=== PATIENT | female | born 1935 | race Caucasian/White ===

== ENCOUNTER 2021-01-03 19:49 | Inpatient (IN) | payer OTHER ==
[2021-01-03 21:20] LABS: Absolute Lymphocytes (CBC) 2.1 K/uL (0.7-4.9); Basophils % 0.5 % (0-1.3); Hematocrit 36.1 % (36.0-45.0); Lymphocytes % 17.5 % (15.3-44.8); MPV 9.1 fL (7.6-11.3); RBC Red Blood Cell Count 3.85 M/uL (3.86-4.86)
--- NOTE | 2021-01-03 21:31 | RAD REPORT ---
EXAM DESCRIPTION: RAD - Chest Single View - 01/03/2021 8:56 pm CLINICAL HISTORY: CHEST PAIN COMPARISON: Single-view chest December 2014 TECHNIQUE: AP portable chest image was obtained 01/03/2021 8:56 pm . FINDINGS: No dense mass or consolidation. Left lung base is limited in assessment. Left hemidiaphrag m elevation is present. Diffusely prominent interstitial pattern noted increased over the prior study . This could be progressive fibrosis, interstitial edema, interstitial infiltrate or a combination. Heart and vasculature are normal. No measurable pleural effusion and no pneumothorax. No acute bony abnormality seen. No acute aortic findings suspected. IMPRESSION: Prominent interstitial pattern increased over remote study. Progressive fibrosis, edema, infiltrate or a combination can give this presentation.
[2021-01-03 21:44] LABS: ALT/SGPT 12 U/L (12-78); AST/SGOT 17 U/L (15-37); Albumin 2.7 g/dL (3.4-5.0); Alkaline Phosphatase 89 U/L (45-117); BUN Blood Urea Nitrogen 17 mg/dL (7-18); Bicarbonate 27 mmol/L (21-32); Bilirubin Direct 0.2 mg/dL (0-0.2); Bilirubin Total 0.8 mg/dL (0.2-1.0); Glucose Level 135 mg/dL (74-106); Magnesium 1.9 mg/dL (1.8-2.4); NT PRO-BNP 315 pg/mL (<450); Potassium 3.1 mmol/L (3.5-5.1); Protein, Total 7.9 g/dL (6.4-8.2); Sodium Level 139 mmol/L (136-145); Troponin (Emerg Dept Use Only) < 0.02 ng/mL (0.0-0.045)
[2021-01-03 22:11] LABS: Protime INR 1.21
[2021-01-03] MEDS ORDERED: CEFTRIAXONE 1000 MG/VIAL ONE (22:12)
[2021-01-03] MEDS ORDERED: NA CHLORIDE 0.9% 1,000 ML ONE (22:12)
[2021-01-03] MEDS ORDERED: NA CHLORIDE 0.9% 500 ML ONE (22:12)
--- NOTE | 2021-01-03 23:56 | EDPHYS ---
Physician Documentation [facility] Name: Cynthia Bridges Age: 85 yrs Sex: Female : 1935 Arrival Date: 01/03/2021 Time: 19:54 Bed 19 Private MD: ED Physician Misael Bell HPI: 01/03 23:39 This 85 yrs old Female presents to ER via Ambulatory with complaints of jose Chills. 23:39 WEAKNESS, FEELS WEAK. The patient presents with generalized weakness, lightheadedness. jose Onset: The symptoms/episode began/occurred 2 day(s) ago. Context: occurred at an unknown location. Modifying factors: The symptoms are alleviated by nothing, the symptoms are aggravated by nothing. Associated signs and symptoms: Pertinent positives: nausea. Severity of symptoms: At their worst the symptoms were mild in the emergency department the symptoms are unchanged. Patient's baseline: Neuro: alert and fully oriented, Motor: no deficits. Historical: - Allergies: 20:05 No Known Allergies; wg - PMHx: 20:05 Hyperlipidemia; Hypertension; TIA; wg - Immunization history:: Adult Immunizations up to date. - Social history:: Smoking status: Patient/guardian denies using tobacco, the patient reports quitting approximately 15 years ago. ROS: 23:48 Constitutional: Negative for fever, chills, and weight loss, Eyes: Negative for injury, jose pain, redness, and discharge, ENT: Negative for injury, pain, and discharge, Neck: Negative for injury, pain, and swelling, Cardiovascular: Negative for chest pain, palpitations, and edema, Respiratory: Negative for shortness of breath, cough, wheezing, and pleuritic chest pain, Abdomen/GI: Negative for abdominal pain, nausea, vomiting, diarrhea, and constipation, Back: Negative for injury and pain, : Negative for injury, bleeding, discharge, and swelling, MS/Extremity: Negative for injury and deformity, Skin: Negative for injury, rash, and discoloration, Psych: Negative for depression, anxiety, suicide ideation, homicidal ideation, and hallucinations, Allergy/Immunology: Negative for hives, rash, and allergies, Endocrine: Negative for neck swelling, polydipsia, polyuria, polyphagia, and marked weight changes, Hematologic/Lymphatic: Negative for swollen nodes, abnormal bleeding, and unusual bruising. 23:48 Neuro: Positive for weakness. Exam: 23:48 Constitutional: This is a well developed, well nourished patient who is awake, alert, jose and in no acute distress. Head/Face: Normocephalic, atraumatic. Eyes: Pupils equal round and reactive to light, extra-ocular motions intact. Lids and lashes normal. Conjunctiva and sclera are non-icteric and not injected. Cornea within normal limits. Periorbital areas with no swelling, redness, or edema. ENT: Nares patent. No nasal discharge, no septal abnormalities noted. Tympanic membranes are normal and external auditory canals are clear. Oropharynx with no redness, swelling, or masses, exudates, or evidence of obstruction, uvula midline. Mucous membranes moist. Neck: Trachea midline, no thyromegaly or masses palpated, and no cervical lymphadenopathy. Supple, full range of motion without nuchal rigidity, or vertebral point tenderness. No Meningismus. Chest/axilla: Normal chest wall appearance and motion. Nontender with no deformity. No lesions are appreciated. Cardiovascular: Regular rate and rhythm with a normal S1 and S2. No gallops, murmurs, or rubs. Normal PMI, no JVD. No pulse deficits. Respiratory: Lungs have equal breath sounds bilaterally, clear to auscultation and percussion. No rales, rhonchi or wheezes noted. No increased work of breathing, no retractions or nasal flaring. Abdomen/GI: Soft, non-tender, with normal bowel sounds. No distension or tympany. No guarding or rebound. No evidence of tenderness throughout. Back: No spinal tenderness. No costovertebral tenderness. Full range of motion. Female : Normal external genitalia. Skin: Warm, dry with normal turgor. Normal color with no rashes, no lesions, and no evidence of cellulitis. MS/ Extremity: Pulses equal, no cyanosis. Neurovascular intact. Full, normal range of motion. Psych: Awake, alert, with orientation to person, place and time. Behavior, mood, and affect are within normal limits. 23:48 Neuro: Orientation: is normal, appropriate for stated age, no acute changes, Mentation: is normal, appropriate for stated age, no acute changes, Memory: is normal, appropriate for stated age, no acute changes, Gait: not tested. Babinski testing is normal, seizure activity, is not displayed by the patient. 01/04 01:25 ECG was reviewed by the Attending Physician. jose Vital Signs: 01/03 20:01 BP 179 / 143; Pulse 98; Resp 18; Temp 97.6; Pulse Ox 98% on R/A; Weight 77.11 kg; wg Height 5 ft. 6 in. (167.64 cm); Pain 0/10; 22:10 BP 163 / 70; Pulse 76; Resp 17 S; Pulse Ox 100% on R/A; Pain 0/10; sj1 01/04 01:03 BP 119 / 67; Pulse 68; Resp 19 S; Pulse Ox 96% on R/A; Pain 0/10; sj1 01/03 20:01 Body Mass Index 27.44 (77.11 kg, 167.64 cm) wg MDM: 01/03 20:48 Patient medically screened. jose 23:52 Differential Diagnosis altered mental status, sepsis. Differential diagnosis: jose generalized weakness, GI bleed, hypovolemia, idiopathic dizziness. Data reviewed: vital signs, nurses notes, lab test result(s), EKG, radiologic studies, CT scan, plain films. Data interpreted: classroom monitor: rate is 76 beats/min, rhythm is regular, Pulse oximetry: is 100 %. Interpretation: normal. Test interpretation: by ED physician or midlevel provider: ECG, plain radiologic studies. Counseling: I had a detailed discussion with the patient and/or guardian regarding: the historical points, exam findings, and any diagnostic results supporting the discharge/admit diagnosis, lab results, radiology results, the need for further work-up and treatment in the hospital. 01/03 20:08 Order name: Basic Metabolic Panel; Complete Time: 23:34 wg 01/03 20:08 Order name: CBC with Diff; Complete Time: 23:34 wg 01/03 20:08 Order name: LFT's; Complete Time: 23:34 wg 01/03 20:08 Order name: Magnesium; Complete Time: 23:34 wg 01/03 20:08 Order name: NT PRO-BNP; Complete Time: 23:34 wg 01/03 20:08 Order name: PT-INR; Complete Time: 23:34 wg 01/03 20:08 Order name: Troponin (emerg Dept Use Only); Complete Time: 23:34 wg 01/03 20:50 Order name: Blood Culture Adult (2) [facility] 01/03 20:50 Order name: Lactate; Complete Time: 23:34 [facility] 01/03 20:50 Order name: Urine Culture [facility] 01/03 20:51 Order name: Flu; Complete Time: 23:34 [facility] 01/03 21:47 Order name: SARS-COV-2 RT PCR; Complete Time: 23:34 EDMS 01/04 00:02 Order name: Urine Dipstick-Ancillary; Complete Time: 00:05 EDMS 01/03 20:08 Order name: XRAY Chest (1 view); Complete Time: 23:34 wg 01/03 20:08 Order name: EKG; Complete Time: 20:08 01/03 20:08 Order name: Cardiac monitoring; Complete Time: 21:48 wg 01/03 20:08 Order name: EKG - Nurse/Tech; Complete Time: 21:48 wg 01/03 20:08 Order name: IV Saline Lock; Complete Time: 21:48 wg 01/03 20:08 Order name: Labs collected and sent; Complete Time: 21:48 wg 01/03 20:08 Order name: O2 Per Protocol; Complete Time: 21:48 wg 01/03 20:08 Order name: O2 Sat Monitoring; Complete Time: 21:48 wg 01/03 20:50 Order name: Urine Dipstick-Ancillary (obtain specimen); Complete Time: 01:16 [facility] 01/04 00:05 Order name: CT Stone Protocol [facility] EC/19 01:25 Rate is 83 beats/min. Rhythm is regular. QRS Superior is Normal. ME interval is normal. QRS jose interval is normal. QT interval is normal. No Q waves. T waves are Normal. No ST changes noted. Clinical impression: NSR w/ Non-specific ST/T Changes and No evidence of ischemia. Interpreted by me. Reviewed by me. Administered Medications: 01/03 21:47 Drug: Rocephin (cefTRIAXone) 1 grams Route: IV; Rate: per protocol; Site: left [facility] antecubital; 01/04 01:16 Follow up: Response: No adverse reaction; IV Status: Completed infusion [facility] 01/03 21:48 Drug: NS 0.9% 500 ml Route: IV; Rate: bolus; Site: left antecubital; [facility] 21:48 Drug: NS 0.9% 1000 ml Route: IV; Rate: 125 ml/hr; Site: left antecubital; sj1 01/04 00:05 Drug: Potassium Effervescent Tablet 50 mEq Route: PO; sj1 00:05 Follow up: Response: No adverse reaction sj1 01:26 Not Given (PT ADMITTED TO THE FLOORr): levofloxacin 500 mg 100 ml IVPB once over 60 minssj1 Disposition Summary: 01/03/21 23:55 Hospitalization Ordered Hospitalization Status: Inpatient Admission jose Provider: Leonid Roque cha Location: Telemetry/MedSurg (observation) jose Condition: Fair jose Problem: new jose Symptoms: have improved jose Bed/Room Type: Standard [facility] Room Assignment: 424(01/04/21 00:37) cg Diagnosis - Weakness jose - Other malaise and fatigue jose - Hypokalemia jose - Syncope Near jose - Dysuria jose - Essential (primary) hypertension jose - UTI/ Urinary tract infection, site not specified jose - Elevated white blood cell count jose - Pyelonephritis acute jose - Other hydronephrosis jose - Hydroureter jose - Pneumonia, unspecified organism - bibasilar jose Forms: - Medication Reconciliation Form jose - SBAR form jose Signatures: Dispatcher [employer] EDMS Misael Bell MD MD cha Garcia, Cindy, RN RN Fredo Hackett, DIONNA Alondra Nicole RN RN sj1 Corrections: (The following items were deleted from the chart) 01/03 21:47 20:50 CORONAVIRUS+BRZ ordered. EDPA EDPA 01/04 00:37 01/03 23:55 jose cg
--- NOTE | 2021-01-03 23:56 | ER ---
Nurse's Notes [facility] Name: Cynthia Bridges Age: 85 yrs Sex: Female : 1935 Arrival Date: 01/03/2021 Time: 19:54 Bed 19 Private MD: Diagnosis: Weakness;Other malaise and fatigue;Hypokalemia;Syncope Near;Dysuria;Essential (primary) hypertension;UTI/ Urinary tract infection, site not specified;Elevated white blood cell count;Pyelonephritis acute;Other hydronephrosis;Hydroureter;Pneumonia, unspecified organism-bibasilar Presentation: 01/03 20:01 Chief complaint: Patient states: Pt states she has had chills and not felt well since wg the [place]. Pt states she has periods of SOB but no fever, cough, n/v/d, Abd pain, or chest pain. Pt's main complaint is of not feeling well and chills. Coronavirus screen: Vaccine status: Patient reports receiving the 2nd dose of the covid vaccine. Date May 2020. Ebola Screen: Patient negative for fever greater than or equal to 101.5 degrees Fahrenheit, and additional compatible Ebola Virus Disease symptoms Patient denies exposure to infectious person. Patient denies travel to an Ebola-affected area in the 21 days before illness onset. No symptoms or risks identified at this time. Initial Sepsis Screen: Does the patient meet any 2 criteria? No. Patient's initial sepsis screen is negative. Does the patient have a suspected source of infection? No. Patient's initial sepsis screen is negative. Risk Assessment: Do you want to hurt yourself or someone else? Patient reports no desire to harm self or others. Onset of symptoms. 20:01 Method Of Arrival: Ambulatory 20:01 Acuity: MITALI 3 wg Triage Assessment: 20:05 General: Appears uncomfortable, slender, well groomed, well developed, Behavior is wg calm, cooperative, appropriate for age. Pain: Denies pain. Respiratory: No deficits noted. Historical: - Allergies: 20:05 No Known Allergies; wg - PMHx: 20:05 Hyperlipidemia; Hypertension; TIA; wg - Immunization history:: Adult Immunizations up to date. - Social history:: Smoking status: Patient/guardian denies using tobacco, the patient reports quitting approximately 15 years ago. Screenin:10 Abuse screen: Denies threats or abuse. Denies injuries from another. Nutritional sj1 screening: No deficits noted. Tuberculosis screening: No symptoms or risk factors identified. Fall Risk None identified. Assessment: 22:09 General: Appears in no apparent distress. Behavior is calm, cooperative, appropriate sj1 for age. Pain: Denies pain. Neuro: No deficits noted. Cardiovascular: No deficits noted. Respiratory: No deficits noted. GI: No deficits noted. : No deficits noted. EENT: No deficits noted. Derm: No deficits noted. Musculoskeletal: No deficits noted. 01/04 00:57 Reassessment: Patient appears in no apparent distress at this time. No changes from sj1 previously documented assessment. Reassessment: REPORT GIVEN TO LUZ VILLAREAL. Vital Signs: 01/03 20:01 BP 179 / 143; Pulse 98; Resp 18; Temp 97.6; Pulse Ox 98% on R/A; Weight 77.11 kg; wg Height 5 ft. 6 in. (167.64 cm); Pain 0/10; 22:10 BP 163 / 70; Pulse 76; Resp 17 S; Pulse Ox 100% on R/A; Pain 0/10; sj1 01/04 01:03 BP 119 / 67; Pulse 68; Resp 19 S; Pulse Ox 96% on R/A; Pain 0/10; sj1 01/03 20:01 Body Mass Index 27.44 (77.11 kg, 167.64 cm) Vitals: 01/03 22:10 Cardiac Rhythm Assessment Regular Sinus rhythm. 1 ED Course: 19:54 Patient arrived in ED. 20:01 Fredo Graves, DIONNA is Primary Nurse. wg 20:05 Triage completed. wg 20:07 Arm band placed on right wrist. wg 20:47 Misael Bell MD is Attending Physician. [facility] 20:56 XRAY Chest (1 view) In Process Unspecified. EDMS 21:47 Flu Sent. sj1 21:56 SARS-COV-2 RT PCR Sent. sj1 22:10 Patient has correct armband on for positive identification. Bed in low position. Call sj1 light in reach. Side rails up X 1. 22:10 No provider procedures requiring assistance completed. Inserted saline lock: 20 gauge sj1 in left antecubital area, using aseptic technique. Blood collected. 23:53 Leonid Roque MD is Hospitalizing Provider. [facility] 01/04 00:51 CT Stone Protocol Sent. sj1 01:04 Patient admitted, IV remains in place. sj1 01:16 Urine Culture Sent. sj1 01:16 Blood Culture Adult (2) Sent. sj1 Administered Medications: 01/03 21:47 Drug: Rocephin (cefTRIAXone) 1 grams Route: IV; Rate: per protocol; Site: left sj antecubital; 01/04 01:16 Follow up: Response: No adverse reaction; IV Status: Completed infusion [facility] 01/03 21:48 Drug: NS 0.9% 500 ml Route: IV; Rate: bolus; Site: left antecubital; [facility] 21:48 Drug: NS 0.9% 1000 ml Route: IV; Rate: 125 ml/hr; Site: left antecubital; [facility] 01/04 00:05 Drug: Potassium Effervescent Tablet 50 mEq Route: PO; sj1 00:05 Follow up: Response: No adverse reaction 1 01:26 Not Given (PT ADMITTED TO THE FLOORr): levofloxacin 500 mg 100 ml IVPB once over 60 minssj1 Outcome: 01/03 23:55 Decision to Hospitalize by Provider. [facility] 01/04 01:03 Admitted to Med/surg via stretcher, with chart, Report called to LUZ kapoor Condition: stable 01:27 Patient left the ED. 1 Signatures: Dispatcher [employer] EDMS Misael Bell MD MD cha Marsh, Wendy wm Gamba, Liam, RN wg Johnson, Sade, RN RN sj1
[2021-01-04 00:02] LABS: Urine Blood 3+ (Negative); Urine Glucose Negative (Negative); Urine Protein 2+ (Negative); Urine pH 5.5 (5.0-7.0)
[2021-01-04] MEDS ORDERED: POTASSIUM CL SA 10 MEQ TAB PO ONE ×3 (00:12→17:00)
[2021-01-04 01:43] VITALS: BMI 27.5
[2021-01-04] MEDS ORDERED: ONDANSETRON 4 MG/2 ML VIAL IV PRN (02:04)
[2021-01-04] MEDS: NA CHLORIDE 0.9% 1,000 ML IV SCH ×2 (02:04→12:47)
[2021-01-04] MEDS ORDERED: ACETAMINOPHEN 500 MG TAB PO PRN (02:04)
[2021-01-04] MEDS ORDERED: HYDRALAZINE HCL 20 MG/ML VIAL IV PRN (02:04)
--- NOTE | 2021-01-04 03:06 | P.HP ---
Certification for Inpatient Patient admitted to: Inpatient With expected LOS: <2 Midnights Patient will require the following post-hospital care: None Practitioner: I am a practitioner with admitting privileges, knowledge of patient current condition, hospital course, and medical plan of care. Services: Services provided to patient in accordance with Admission requirements found in Title 42 Section 412.3 of the Code of Federal Regulations Patient History Date of Service: 01/04/21 Reason for admission: UTI History of Present Illness: Ms. Bridges is an 85 yo F with HTN and HLD who presents with 3 days of lightheadedness and weakness. She denies falls and syncopal episodes. She denies fever, N/V, and urinary symptoms. WBC 12, K 3.1. Urine dipstick consistent with UTI. CXR IMPRESSION: Prominent interstitial pattern increased over remote study. Progressive fibrosis, edema, infiltrate or a combination can give this presentation. CT ABDOMEN pending Allergies No Known Allergies Allergy (Verified 01/14/15 22:32) Home Medications: Amlodipine [Norvasc] 2.5 mg PO DAILY 01/04/21 Olmesartan/Hydrochlorothiazide [Olmesartan-Hctz 40-12.5 mg Tab] 1 tab PO DAILY 01/04/21 - Past Medical/Surgical History Has patient received pneumonia vaccine in the past: No Diabetic: No -: HTN -: Right Rotator Cuff Tear -: HLD -: TIA -: Left Rotator Cuff Repair -: Bilateral Cataract Surgery -: Tubal ligation -: Append -: Tonsillectomy - Family History Family History: Reviewed- Non-Contributory - Social History Smoking Status: Former smoker Alcohol use: Yes CD- Drugs: No Caffeine use: Yes Place of Residence: Home Review of Systems 10-point ROS is otherwise unremarkable General: Weakness, As per HPI Eyes: Unremarkable ENT: Unremarkable Respiratory: Unremarkable Cardiovascular: Light Headedness Gastrointestinal: Unremarkable Genitourinary: Unremarkable Musculoskeletal: Unremarkable Integumentary: Unremarkable Neurological: Unremarkable Lymphatics: Unremarkable Physical Examination - Vital Signs Temperature: 97.1 F Blood Pressure: 110/61 Pulse: 74 Respirations: 19 Pulse Ox (%): 95 - Physical Exam General: Alert, In no apparent distress HEENT: Atraumatic, PERRLA, Mucous membr. moist/pink, EOMI, Sclerae nonicteric Neck: Supple, 2+ carotid pulse no bruit, No LAD, Without JVD or thyroid abnormality Respiratory: Clear to auscultation bilaterally, Normal air movement Cardiovascular: Regular rate/rhythm, Normal S1 S2 Gastrointestinal: Normal bowel sounds, No tenderness Musculoskeletal: No tenderness Integumentary: No rashes Neurological: Normal speech, Normal strength at 5/5 x4 extr, Normal tone, Normal affect Lymphatics: No axilla or inguinal lymphadenopathy - Studies Laboratory Data (last 24 hrs) 01/03/21 20:53: PT 13.9 H, INR 1.21 01/03/21 20:53: WBC 12.00 H, Hgb 12.1, Hct 36.1, Plt Count 226 01/03/21 20:53: Sodium 139, Potassium 3.1 L, BUN 17, Creatinine 1.05, Glucose 135 H, Magnesium 1.9, Total Bilirubin 0.8, AST 17, ALT 12, Alkaline Phosphatase 89 Microbiology Data (last 24 hrs): 01/03/21 21:29 Nasopharnyx Influenza Type A Antigen Screen - Final 01/03/21 21:29 Nasopharnyx Influenza Type B Antigen Screen - Final Assessment and Plan - Problems (Diagnosis) (1) HLD (hyperlipidemia) Current Visit: Yes Status: Chronic Qualifiers: Hyperlipidemia type: unspecified Qualified Code(s): E78.5 - Hyperlipidemia, unspecified (2) HTN (hypertension) Current Visit: Yes Status: Chronic Qualifiers: Hypertension type: unspecified Qualified Code(s): I10 - Essential (primary) hypertension (3) UTI (urinary tract infection) Current Visit: Yes Status: Acute Qualifiers: Urinary tract infection type: site unspecified Hematuria presence: with hematuria Qualified Code(s): N39.0 - Urinary tract infection, site not specified; R31.9 - Hematuria, unspecified - Plan continue IVF hydration and IV antibiotics potassium replacement hydralazine IV prn for BP spikes reconcile and continue home medications DVT ppx Discharge Plan: Home Plan to discharge in: 48 Hours - Advance Directives Does patient have a Living Will: No Does patient have a Durable POA for Healthcare: No - Code Status/Comfort Care Code Status Assessed: Yes (full code ) Critical Care: No Time Spent Managing Pts Care (In Minutes): 70
[2021-01-04 06:49] LABS: Absolute Lymphocytes (CBC) 3.1 K/uL (0.7-4.9); Basophils % 0.9 % (0-1.3); Hematocrit 33.7 % (36.0-45.0); Lymphocytes % 31.6 % (15.3-44.8); MPV 8.9 fL (7.6-11.3); RBC Red Blood Cell Count 3.62 M/uL (3.86-4.86)
[2021-01-04 06:55] LABS: Albumin 2.4 g/dL (3.4-5.0); Bilirubin Total 0.7 mg/dL (0.2-1.0); Magnesium 2.1 mg/dL (1.8-2.4); Potassium 3.3 mmol/L (3.5-5.1)
[2021-01-04] MEDS ORDERED: CEFTRIAXONE 1 GM/NS 50 ML 1 GM/50 ML BAG IV SCH (09:00)
[2021-01-04] MEDS ORDERED: INFLUENZA VACCINE (for 6+ mo) 0.5 ML DOSE IMVAC ONE (10:00)
--- NOTE | 2021-01-04 12:40 | P.PN ---
Subjective Date of Service: 01/04/21 Patient lives at home by herself. Patient's chart is been reviewed and patient is been feeling weak for the last 48 hr. She normally does most of her own activities of daily living as she lives at home alone. However, over the last couple of days she has been having weakness and her mentation has been altered. She is not able to think properly and she would just does not have a strain to get out of bed. Whenever she does walk she feels like she is going to fall and she has to hold onto things. This is need for her and she has never had go through a lot of this. Her chest x-ray indicated that she had some kind of interstitial lung disease with consolidation indicating a pneumonic process. Were going to get a dedicated CT of the chest to further evaluate this. Pneumonia can't be causing her symptoms as well as the confusion that she is feeling. She also has a urinary tract infection but of microscopy was not performed. Will also get a UA a with micro and a CT of the brain to make sure she has not had a acute stroke. Patient will need more than 24 hr of hospitalization to further work her up. She does need some physical therapy as she lives alone and she and normally does her own ADLs so she will need physical therapy to get her back to her normal level of functioning. Review of Systems 10-point ROS is otherwise unremarkable Physical Examination - Vital Signs Temperature: 98.3 F Blood Pressure: 106/46 Pulse: 70 Respirations: 18 Pulse Ox (%): 93 - Physical Exam General: Alert, In no apparent distress, Confused Neck: Supple, JVD not distended Respiratory: Diminished, Crackles/rales, Rhonchi/gurgles Cardiovascular: Regular rate/rhythm, Normal S1 S2 Gastrointestinal: Normal bowel sounds, Soft and benign, Non-distended, Tenderness (Patient was some flank tenderness) Musculoskeletal: No clubbing, No swelling, No tenderness Neurological: Normal speech, Normal tone, Sensation intact, Cranial nerves 3-12 intact, Normal affect, Abnormal gait, Abnormal strength Lymphatics: No axilla or inguinal lymphadenopathy - Studies Laboratory Data (last 24 hrs) 01/03/21 20:53: PT 13.9 H, INR 1.21 01/03/21 20:53: WBC 12.00 H, Hgb 12.1, Hct 36.1, Plt Count 226 01/03/21 20:53: Sodium 139, Potassium 3.1 L, BUN 17, Creatinine 1.05, Glucose 135 H, Magnesium 1.9, Total Bilirubin 0.8, AST 17, ALT 12, Alkaline Phosphatase 89 Microbiology Data (last 24 hrs): 01/03/21 21:29 Nasopharnyx Influenza Type A Antigen Screen - Final 01/03/21 21:29 Nasopharnyx Influenza Type B Antigen Screen - Final Medications List Reviewed: Yes Assessment & Plan - Problems (Diagnosis) (1) Generalized weakness Current Visit: Yes Status: Acute (2) Toxic encephalopathy Current Visit: Yes Status: Acute (3) Interstitial lung disease Current Visit: Yes Status: Acute (4) Hydronephrosis Current Visit: Yes Status: Acute (5) Ureteritis Current Visit: Yes Status: Acute (6) Consolidation lung Current Visit: Yes Status: Acute (7) UTI (urinary tract infection) Current Visit: Yes Status: Acute Qualifiers: Urinary tract infection type: site unspecified Hematuria presence: with hematuria Qualified Code(s): N39.0 - Urinary tract infection, site not sp ecified; R31.9 - Hematuria, unspecified - Plan Plan: 1. CT of the chest and CT of the brain 2. Dedicated UA with microscopy 3. Procalcitonin 4. Blood cultures 5. Physical therapy evaluation 6. Broad-spectrum antibiotic coverage 7. GI and DVT prophylaxis - Advance Directives Does patient have a Living Will: No Does patient have a Durable POA for Healthcare: No
--- NOTE | 2021-01-04 15:30 | RAD REPORT ---
EXAM DESCRIPTION: CT - Head Brain Wo Cont - 01/04/2021 3:19 pm CLINICAL HISTORY: Generalized weakness COMPARISON: 2014 TECHNIQUE: Computed axial tomography of the head was obtained. IV contrast was not requested. All CT scans are performed using dose optimization technique as appropriate and may include automated exposure control or mA/KV adjustment according to patient size. FINDINGS: An intracranial bleed is not seen . The ventricles are normal in caliber. No extra-axial fluid collection is noted. Mild cerebral atrophy Fluid within the sinuses/ mastoids is not seen. IMPRESSION: No acute intracranial abnormality is seen. If patient's symptoms persist MRI of the bra in would be recommended.
--- NOTE | 2021-01-04 15:55 | RAD REPORT ---
EXAM DESCRIPTION: CT - Thorax W/ Con - 01/04/2021 3:19 pm CLINICAL HISTORY: Chest pain COMPARISON: January 03, 2021 chest x-ray TECHNIQUE: Computed axial tomography of the chest was obtained. 100 cc Isovue 300 was administered i ntravenously. All CT scans are performed using dose optimization technique as appropriate and may include automated exposure control or mA/KV adjustment according to patient size. FINDINGS: [id number] patchy left lower lobe opacities. Mild right lower lobe opacity. The upper lobes are essentially clear. No mediastinal or hilar lymphadenopathy is seen. A pleural effusion is not present. A pericardial effusion is not seen. A 2.5 centimeter left thyroid nodule. Smaller nodule right lobe of the thyroid. Cholelithiasis. 15 millimeter nonspecific nodule left adrenal gland IMPRESSION: Mild to moderate opacities within left lower lobe probably pneumonia Mild right lower lobe opacity may represent additional pneumonia. 2.5 centimeter left thyroid nodule. Smaller nodule right lobe of the thyroid gland. Nonemergent thyro id ultrasound recommended
--- NOTE | 2021-01-04 16:44 | EKG ---
Test Date: 2021-01-03 Test Time: 20:48:16 Infrastructure Developer: MEASUREMENT RESULTS: Intervals: Rate: 92 [place]: 186 QRSD: 66 QT: 366 QTc: 452 [place]: P: -18 [place]: 186 QRS: -19 T: 43 INTERPRETIVE STATEMENTS: Sinus rhythm with premature supraventricular complexes Otherwise normal ECG Compared to ECG 11/23/2015 12:53:18 No significant changes Electronically Signed On 01-04-21 16:41:09 CDT by Payam Garcia
--- NOTE | 2021-01-04 16:44 | EKG ---
Test Date: 2021-01-03 Test Time: 20:49:15 Java Solutions Architect: MEASUREMENT RESULTS: Intervals: Rate: 83 [place]: 190 QRSD: 70 QT: 354 QTc: 415 [place]: P: [place]: 190 QRS: -11 T: 51 INTERPRETIVE STATEMENTS: Sinus rhythm with marked sinus arrhythmia Otherwise normal ECG Compared to ECG 01/03/2021 20:48:16 Atrial premature complex(es) no longer present Electronically Signed On 01-04-21 16:41:08 CDT by Payam Garcia
--- NOTE | 2021-01-04 16:59 | RAD REPORT ---
EXAM DESCRIPTION: CT - Stone Protocol - 01/04/2021 7:16 am CLINICAL HISTORY: The patient is 85 years old and is Female; FLANK PAIN TECHNIQUE: Axial computed tomography images of the abdomen and pelvis without intravenous contrast. Sagittal and coronal reformatted images were created and reviewed. This CT exam was performed usi ng one or more of the following dose reduction techniques: automated exposure control, adjustment o f the mA and/or kV according to patient size, and/or use of iterative reconstruction technique. COMPARISON: No relevant prior studies available. FINDINGS: Lung bases: Small focal areas of consolidation or atelectasis/scarring in the lung bases bilaterally measuring up to 2.4 cm. Calcified granuloma in the right lung base. ABDOMEN: Liver: Unremarkable. Gallbladder and bile ducts: Multiple large gallstones measuring up to 1.9 cm in the gallbladder. Pancreas: Unremarkable. No ductal dilation. Spleen: Unremarkable. No splenomegaly. Adrenals: Indeterminate 1.7 cm left adrenal nodule. Kidneys and ureters: Mild left hydroureteronephrosis and periureteral stranding. No stone identi fied. Mild to moderate bilateral perinephric stranding which may be chronic. Stomach and bowel: Sigmoid diverticulosis. Scattered colonic diverticula. No obstruction. No mucosal thickening. PELVIS: Appendix: No findings to suggest acute appendicitis. Bladder: Unremarkable. No stones. Reproductive: Unremarkable as visualized. ABDOMEN and PELVIS: Intraperitoneal space: Unremarkable. No free air. No significant fluid collection. Bones/joints: Schmorl's node at T12. Mild anterolisthesis of L4 on L5. No acute fracture. No dislocation. Soft tissues: Unremarkable. Vasculature: Scattered atherosclerotic vascular calcifications. No abdominal aortic aneurysm. Lymph nodes: Unremarkable. No enlarged lymph nodes. IMPRESSION: 1. Mild left hydroureteronephrosis and periureteral stranding. No stone identified. Findings can be seen with recent stone passage and UTI. 2. Sigmoid diverticulosis. 3. Multiple large gallstones measuring up to 1.9 cm in the gallbladder. 4. Indeterminate 1.7 cm left adrenal nodule. 5. Small focal areas of consolidation or atelectasis/scarring in the lung bases bilaterally measuri ng up to 2.4 cm. Underlying pulmonary nodules are not excluded. Electronically signed by: Adithya Flores MD 01/04/2021 1:01 AM CDT Due to temporary technical issues with the PACS/Fluency reporting system, reports are being signed by the in house radiologist without review as a courtesy to ensure prompt reporting. The interpreting r adiologist is fully responsible for the content of the report.
[2021-01-04] MEDS: CEFTRIAXONE 1 GM/NS 50 ML 1 GM/50 ML BAG IV SCH (20:04)
[2021-01-04 21:57] LABS: Urine Appearance CLEAR (Clear); Urine Bilirubin NEGATIVE (Negative); Urine Blood NEGATIVE (Negative); Urine Color YELLOW (Yellow); Urine Glucose NEGATIVE (Negative); Urine Protein NEGATIVE (Negative); Urine Specific Gravity >=1.030 (1.005-1.030)
[2021-01-04 22:06] LABS: Urine Bacteria <20 /HPF (<20); Urine Mucus 1+ /HPF (NONE SEEN); Urine RBC <5 /HPF (NONE SEEN)
[2021-01-05 04:23] LABS: Basophils % 2.7 % (0-1.3); Hematocrit 33.9 % (36.0-45.0); Lymphocytes % 38.1 % (15.3-44.8); MPV 9.4 fL (7.6-11.3); RBC Red Blood Cell Count 3.58 M/uL (3.86-4.86)
[2021-01-05 04:46] LABS: Albumin 2.6 g/dL (3.4-5.0); Bilirubin Total 0.3 mg/dL (0.2-1.0); Magnesium 1.9 mg/dL (1.8-2.4); Phosphorus 2.8 mg/dL (2.5-4.9); Potassium 3.6 mmol/L (3.5-5.1); Protein, Total 7.4 g/dL (6.4-8.2); Thyroid Stimulating Hormone 3.44 uIU/mL (0.360-3.740)
[2021-01-05] MEDS: NA CHLORIDE 0.9% 1,000 ML IV SCH ×2 (05:00→16:22)
[2021-01-05] MEDS ORDERED: PNEUMOCOCCAL VACCINE 0.5 ML IMVAC ONE (08:00)
[2021-01-05] MEDS: CEFTRIAXONE 1 GM/NS 50 ML 1 GM/50 ML BAG IV SCH ×2 (08:18→20:03)
[2021-01-05] MEDS ORDERED: POTASSIUM CL SA 10 MEQ TAB PO ONE (09:00)
[2021-01-05] MEDS ORDERED: ALBUTEROL INHALER 60 PUFF/8 GM IH PRN (15:08)
[2021-01-05] MEDS ORDERED: METHYLPREDNISOLONE 125 MG INJ IV ONE (15:22)
[2021-01-05] MEDS ORDERED: AZITHROMYCIN IV 250 MG in NA CHLORIDE 0.9% 250 ML IVPB ONE (15:24)
[2021-01-05] MEDS: DULERA 100/5 (MOMETASONE/FORMOTEROL) INHALER IH SCH (20:02)
[2021-01-06 06:58] LABS: Absolute Lymphocytes (CBC) 1.6 K/uL (0.7-4.9); Basophils % 0.5 % (0-1.3); Hematocrit 30.6 % (36.0-45.0); Lymphocytes % 28.1 % (15.3-44.8); RBC Red Blood Cell Count 3.28 M/uL (3.86-4.86)
[2021-01-06 07:05] LABS: BUN Blood Urea Nitrogen 12 mg/dL (7-18); Bicarbonate 25 mmol/L (21-32); Glucose Level 128 mg/dL (74-106); Potassium 3.8 mmol/L (3.5-5.1); Sodium Level 144 mmol/L (136-145)
--- NOTE | 2021-01-06 07:25 | RAD REPORT ---
EXAM DESCRIPTION: [place] Single View01/06/2021 6:56 am CLINICAL HISTORY: Chest pain COMPARISON: December FINDINGS: No significant change in the bilateral pulmonary opacities left greater than right. Heart is borderline enlarged IMPRESSION: No significant change the bilateral pulmonary opacities left greater than right probabl y pneumonia
[2021-01-06] MEDS ORDERED: MAGNESIUM SULFATE 1 gm IVPB 1 GM/100 ML BAG IV ONE (07:46)
[2021-01-06] MEDS ORDERED: POTASSIUM CL SA 10 MEQ TAB PO ONE (07:51)
[2021-01-06 08:49] VITALS: BP 140/58; TEMP 97
[2021-01-06] MEDS: CEFTRIAXONE 1 GM/NS 50 ML 1 GM/50 ML BAG IV SCH (08:51)
[2021-01-06] MEDS: NA CHLORIDE 0.9% 1,000 ML IV SCH (08:52)
[2021-01-06] MEDS: DULERA 100/5 (MOMETASONE/FORMOTEROL) INHALER IH SCH (08:53)
[2021-01-06] MEDS ORDERED: AZITHROMYCIN IV 250 MG in NA CHLORIDE 0.9% 250 ML IVPB SCH (09:00)
[2021-01-06 09:49] VITALS: O2SAT 95
--- NOTE | 2021-01-06 11:22 | P.DS ---
Discharge Date: 01/06/21 Disposition: DC HOME/HOME HEALTH CARE Discharge Condition: GOOD Reason for Admission: UTI - Problems (1) Generalized weakness Current Visit: Yes Status: Acute (2) Toxic encephalopathy Current Visit: Yes Status: Acute (3) Interstitial lung disease Current Visit: Yes Status: Acute (4) Hydronephrosis Current Visit: Yes Status: Acute (5) Ureteritis Current Visit: Yes Status: Acute (6) Consolidation lung Current Visit: Yes Status: Acute (7) UTI (urinary tract infection) Current Visit: Yes Status: Acute Qualifiers: Urinary tract infection type: site unspecified Hematuria presence: with hematuria Qualified Code(s): N39.0 - Urinary tract infection, site not specified; R31.9 - Hematuria, unspecified Brief History of Present Illness: Patient is an 85-year-old female came to the hospital with generalized weakness and she was not feeling like herself. She just does not have the energy. She normally lives alone and is able to do most of her own activities of daily living. She came to the emergency room to be evaluated and she was found have a urinary tract infection as well as a pneumonic process. She was treated with IV antibiotic therapy and she was also treated for early COPD. She has a history of tobacco abuse. She quit about 15 years ago when she was 70 years old. She does have some chronic lung changes on her CT scan, and this can be evaluated as an outpatient with Pulmonary. Can follow with her primary care provider in 1 week can get a repeat chest x-ray in 1-2 weeks to make sure the pneumonic process has resolved. At this time, patient is stable for discharge home. Vital Signs/Physical Exam: Temp Pulse Resp BP Pulse Ox 97.0 F 69 18 140/58 L 96 01/06/21 08:00 01/06/21 08:00 01/06/21 08:00 01/06/21 08:00 01/06/21 08:00 Laboratory Data at Discharge: WBC 5.60 K/uL (4.3-10.9) D 01/06/21 06:32 Hgb 10.4 g/dL (12.0-15.0) L 01/06/21 06:32 Hct 30.6 % (36.0-45.0) L 01/06/21 06:32 Plt Count 191 K/uL (152-406) 01/06/21 06:32 PT 13.9 SECONDS (9.5-12.5) H 01/03/21 20:53 INR 1.21 01/03/21 20:53 Sodium 144 mmol/L (136-145) 01/06/21 06:32 Potassium 3.8 mmol/L (3.5-5.1) 01/06/21 06:32 BUN 12 mg/dL (7-18) 01/06/21 06:32 Creatinine 0.59 mg/dL (0.55-1.3) 01/06/21 06:32 Glucose 128 mg/dL (74-106) H 01/06/21 06:32 Phosphorus 2.8 mg/dL (2.5-4.9) 01/05/21 03:34 Magnesium 1.8 mg/dL (1.8-2.4) 01/06/21 06:32 Total Bilirubin 0.3 mg/dL (0.2-1.0) 01/05/21 03:34 AST 13 U/L (15-37) L 01/05/21 03:34 ALT 10 U/L (12-78) L 01/05/21 03:34 Alkaline Phosphatase 78 U/L (45-117) 01/05/21 03:34 Triglycerides 108 mg/dL (<150) 01/05/21 03:34 Cholesterol 166 mg/dL (<200) 01/05/21 03:34 HDL Cholesterol 57 mg/dL (40-60) 01/05/21 03:34 Cholesterol/HDL Ratio 2.91 01/05/21 03:34 Home Medications: Amlodipine [Norvasc*] 2.5 mg PO DAILY 01/04/21 Olmesartan/Hydrochlorothiazide [Olmesartan-Hctz 40-12.5 mg Tab] 1 tab PO DAILY 01/04/21 Albuterol Inhaler [Ventolin Inhaler*] 2 puff IH Q6H PRN #1 hfa.aer.ad 01/06/21 Azithromycin Tab [Zithromax*] 250 mg PO DAILY #5 tab 01/06/21 Cefdinir [Omnicef] 300 mg PO BID #10 capsule 01/06/21 Mometasone/Formoterol [Dulera 100 Mcg/5 Mcg Inhaler] 2 puff IH BID #1 inhaler 01/06/21 predniSONE [Deltasone] 20 mg PO DAILY #5 tab 01/06/21 New Medications: Mometasone/Formoterol [Dulera 100 Mcg/5 Mcg Inhaler] 2 puff IH BID #1 inhaler Cefdinir [Omnicef] 300 mg PO BID #10 capsule predniSONE [Deltasone] 20 mg PO DAILY #5 tab Albuterol Inhaler [Ventolin Inhaler*] 2 puff IH Q6H PRN #1 hfa.aer.ad PRN Reason: Shortness Of Breath Azithromycin Tab [Zithromax*] 250 mg PO DAILY #5 tab Physician Discharge Instructions: OK TO DC IV AND DC HOME with home health FOLLOW-UP WITH PRIMARY CARE PROVIDER IN 1-2 WEEKS FOLLOW-UP WITH Pulmonary IN 1-2 WEEKS RETURN TO THE ER IF symptoms worsen CALL or TEXT DR. ARANGO AT [phone] IF ANY QUESTIONS REGARDING HOSPITAL STAY. PLEASE CALL THE FLOOR AT [phone] IF ANY MEDICATION OR NURSING QUESTIONS. Diet: AHA Activity: Fall precautions Followup: Eb Reynolds MD [Primary Care Provider] -
== END 2021-01-06 12:30 | disposition home health service (06) | DRG 689 ==
LOC: ER 19:49 → ERHOLD 01-04 00:26 → 4TH 01-04 00:51 → OBSVTOIN 01-04 12:40
PROVIDERS: ADMIT Hospitalist; ATTEND Hospitalist
DX: N10 Acute pyelonephritis (principal); G92.9 Unspecified toxic encephalopathy; J18.1 Lobar pneumonia, unspecified organism; N13.4 Hydroureter; J44.0 Chronic obstructive pulmonary disease with (acute) lower respiratory infection; E78.5 Hyperlipidemia, unspecified; E87.6 Hypokalemia; D72.829 Elevated white blood cell count, unspecified; I10 Essential (primary) hypertension; R31.9 Hematuria, unspecified; Z86.73 Personal history of transient ischemic attack (TIA), and cerebral infarction without residual deficits; Z87.891 Personal history of nicotine dependence; Z79.899 Other long term (current) drug therapy; Z98.51 Tubal ligation status; Z90.49 Acquired absence of other specified parts of digestive tract; Z60.2 Problems related to living alone; Z20.822 Contact with and (suspected) exposure to COVID-19
CPT/HCPCS: 36415; 70450; 71045; 71260; 74176; 76377; 80048; 80053; 80061; 80076; 81001; 81003; 83605; 83735; 83880; 84100; 84132; 84145; 84439; 84443; 84484; 85025; 85610; 85652; 86140; 87040; 87077; 87086; 87088; 87186; 87804; 93005; 94760; 96366; 97161; 99285; G0378; J0360; J0456; J0696; J2930; J3475; J7030; J7040; J7050; J7606; Q9967; U0003